=== PATIENT | female | born 1985 | race Caucasian/White ===

== ENCOUNTER 2018-02-04 06:45 | Outpatient (CLI) | payer OTHER | END 2018-02-04 06:46 | disposition home or self-care (01) | LOC: BICULT 06:45 | PROVIDERS: ATTEND Internal Medicine Endocrinology, Diabetes & Metabolism | DX: Q96.9 Turner's syndrome, unspecified (principal); N91.2 Amenorrhea, unspecified; R93.8 Abnormal findings on diagnostic imaging of other specified body structures | CPT/HCPCS: 76700; 76856 ==